=== PATIENT | female | born 1970 | race African-American/Black ===

== ENCOUNTER 2018-08-12 12:24 | Emergency (ER) | payer OTHER ==
[2018-08-12 12:31] VITALS: BP 155/90; PULSE 76; TEMP 97.8; BMI 26.5
--- NOTE | 2018-08-12 12:55 | PDOC ---
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 Patient states is too painful to walk, called EMS which transported her here for evaluation. Occurred: reports: just prior to arrival, this morning Pain Location: reports: lower extremity (lefty ankle / foot ) Modifying Factors: improves with: cold therapy, immobilization Associated Symptoms (Fall): denies symptoms Past History - Travel Traveled outside of the country in the last 30 days: No Close contact w/someone who was outside of country & ill: No - Past Medical History Allergies/Adverse Reactions: Allergies Allergy/AdvReac Type Severity Reaction Status Date / Time No Known Allergies Allergy Verified 08/12/18 12:26 Home Medications: Ambulatory Orders NK [No Known Home Medication] 08/12/18 COPD: No - Suicide/Smoking/Psychosocial Hx Smoking History: Never smoked Review of Systems - Review of Systems Able to Perform ROS?: Yes Is the patient limited Yi proficient: Yes Constitutional: Yes: Symptoms Reported, See HPI. No: Chills, Loss of Appetite, Malaise HEENTM: No: Symptoms Reported Musculoskeletal: Yes: Symptoms Reported, See HPI, Joint Pain, Joint Swelling, Muscle Pain Integumentary: Yes: Symptoms Reported, See HPI, Bruising All Other Systems: Reviewed and Negative *Physical Exam - Vital Signs Last Vital Signs Temp Pulse Resp BP Pulse Ox 97.8 F 76 18 155/90 98 08/12/18 12:29 08/12/18 12:29 08/12/18 12:29 08/12/18 12:29 08/12/18 12:29 - Physical Exam General Appearance: Yes: Nourished, Appropriately Dressed, Mild Distress HEENT: positive: ANNIKA, Normal ENT Inspection, TMs Normal, Pharynx Normal Neck: positive: Supple. negative: Tender Respiratory/Chest: positive: Lungs Clear Musculoskeletal: positive: Normal Inspection Extremity: positive: Tender (lateral aspect ), Swelling. negative: Normal Capillary Refill, Normal Inspection (is no point tenderness to medial or lateral malleolus, no fifth metatarsal or navicular tenderness, no crepitus or step-offs. Range of motion is limited plantar flexion and dorsiflexion due to pain at lateral aspect of midfoot and ligamentous areas. Negative squeeze test. Neurovascular intact to foot), Normal Range of Motion (limited due to pain ) Integumentary: positive: Normal Color, Bruising Neurologic: positive: respiratory therapy director II-XII NML intact, Fully Oriented, Alert, Normal Mood/ Affect, Normal Response, Motor Strength 5/5 Moderate Sedation - Procedure Monitoring Vital Signs: Procedure Monitoring Vital Signs Temperature 97.8 F 08/12/18 12:29 Pulse Rate 76 08/12/18 12:29 Respiratory Rate 18 08/12/18 12:29 Blood Pressure 155/90 08/12/18 12:29 O2 Sat by Pulse Oximetry (%) 98 08/12/18 12:29 Progress Note - Progress Note Progress Note: X-ray negative for fractures or dislocations, Christ wrap Aircast provided and patient well to ambulate with splinting. We'll follow up with orthopedist *DC/Admit/Observation/Transfer Diagnosis at time of Disposition: Ankle sprain Qualifiers: Encounter type: initial encounter Involved ligament of ankle: unspecified ligament Laterality: left Qualified Code(s): S93.402A - Sprain of unspecified ligament of left ankle, initial encounter - Discharge Dispostion Disposition: HOME Condition at time of disposition: Stable Decision to Admit order: No - Referrals Referrals: Tapan Laureano MD [Staff Physician] - ON STAFF,NOT [Primary Care Provider] - - Patient Instructions Printed Discharge Instructions: DI for Ankle Sprain Additional Instructions: Rest, ice to area on and off for 15 minutes 4-6 times a day Avoid heavy lifting or exercise until pain and swelling is resolved or until further directed Keep area highly elevated to reduce swelling Use splints/Christ wrap as directed Followup with orthopedist in one to 2 days if not improving, if significantly improved may wait one week for followup with orthopedist May use ibuprofen 2-200 mg tablets every 6 hours as needed for pain - Post Discharge Activity Forms/Work/School Notes: Back to Work
[2018-08-12] MEDS ORDERED: IBUPROFEN 400 MG TABLET (FP) PO ONE ×2 (13:11→13:18)
== END 2018-08-12 13:22 | disposition home or self-care (01) ==
LOC: JERFT 12:24
PROC: 2W3RX1Z Immobilization of Left Lower Leg using Splint (ICD-10-PCS; principal; 2018-08-12)
DX: S93.402A Sprain of unspecified ligament of left ankle, initial encounter (principal); W01.0XXA Fall on same level from slipping, tripping and stumbling without subsequent striking against object, initial encounter; Y93.F9 Activity, other caregiving; Y92.89 Other specified places as the place of occurrence of the external cause; Y99.0 Civilian activity done for income or pay
CPT/HCPCS: 73610-TC-LT-FY; 99282-25